=== PATIENT | male | born 1925 | race Caucasian/White ===

== ENCOUNTER 2017-01-18 13:20 | Emergency (ER) | payer OTHER, MEDICARE ==
[2017-01-18 13:40] VITALS: O2SAT 92
--- NOTE | 2017-01-18 14:27 | EDPHY ---
H & P Time Seen by Provider: 01/18/17 13:51 HPI/ROS: CHIEF COMPLAINT: pain to the proximal thigh down to the knee, right-sided HISTORY OF PRESENT ILLNESS: ED 11-year-old male who still lives alone. He does recall, granted much later in the course of his visit here, that he had a bit of a minor fall some 3 days ago. He is in the laundry room and felt of self cutting back. Onset is back to the lumbar area itself directly and then as he lost his balance lower himself gradually to the floor. Fortunately the strength to get up off the floor. Whereas he has had some pain in the right thigh for the last week it was quite worse beginning the next day, 2 days ago. It is is it began in the right knee and ascended up to the right mid thigh. At times it just comes out of the blue I will speak cramp up as if it is a muscle by problem and cough and pain. It is also steady there. Interestingly, he is able to ambulate with his walker with his daughter in order to come here. Vis-a-vis he reports no pain with weight-bearing itself. He denies any numbness or tingling paresthesias. There is no pain going down the posterior aspect of the leg to suggest radicular distribution. He does have a remote history of a lumbar fusion but is not given a problem. Denies any other recent spinal instrumentation. He did try oxycodone 10 mg the other day, it did not help, nor did it make him feel ill. He was able to ambulate well without near syncopal event. Thus he has not taken anymore as it did not help. Daughter reports that he does have more pain medicines available to him at home as well. He has not run out Work: none REVIEW OF SYSTEMS: Constitutional - no fevers or chills Musculoskeletal - no joint or muscle pain. Integument - no rashes [or wounds Neurological - no numbness, tingling, or paresthesias. Smoking Status: Never smoked Physical Exam: General Appearance: Alert, no distress. Afebrile. During the course of the interview he would all of a sudden seize up as if the pain was much worse and slightly flexes thigh and bend his knee. However he notes the pain was steady and consistent and not related to movement Extremities: He is able to internally and externally rotate at the right hip without any aggravation of pain. At the same token however when he attempts to flex the right hip as well as bend the right knee quite painful Neurological: NV intact. Sensation is intact. Muscular testing does aggravate and precipitate some of the pain Skin: Skin is intact. Warm and dry, no rashes. no lymphangitis. . Constitutional: Initial Vital Signs Temperature (C) 37 C 01/18/17 13:30 Heart Rate 103 H 01/18/17 13:30 Respiratory Rate 18 01/18/17 13:30 Blood Pressure 185/92 H 01/18/17 13:30 O2 Sat (%) 92 01/18/17 13:30 O2 Delivery Mode Room Air Allergies/Adverse Reactions: aspirin [Aspirin] Allergy (Verified 05/06/09 19:43) Home Medications: Medication Instructions Recorded Clopidogrel Bisulfate [Plavix (*)] 75 mg PO DAILY #30 tab 12/25/14 traZODone [traZODONE 100MG (*)] 50 mg PO HS #15 tab 12/25/14 Lexapro 01/18/17 Lisinopril 01/18/17 Medical Decision Making - Diagnostics Imaging Results: Imaging Impressions Femur X-Ray 01/18/17 14:27 Impression: 1. No acute osseous at about is seen about the right femur and right knee. 2. Tiny marginal osteophytes around the femoral head. 3. Small osteophytes at the patellofemoral joint. 4. Atherosclerotic vascular calcifications are noted in the soft tissues. Knee X-Ray 01/18/17 14:27 Impression: 1. No acute osseous at about is seen about the right femur and right knee. 2. Tiny marginal osteophytes around the femoral head. 3. Small osteophytes at the patellofemoral joint. 4. Atherosclerotic vascular calcifications are noted in the soft tissues. Films reviewed by me on the [facility] system ED Course/Re-evaluation: Getting history from this elderly gentleman was circumspect as would be expected. His hard of hearing did not help although it seems to be only mild. He specifically denies any history of abdominal aortic aneurysm. I would concern for insufficiency fracture and as he is weight-bearing do not feel is necessary to pursue this at this time. However if he is not better in a week or if he is having in for increasing symptomatology particular with weight- bearing thus a CT scan of the thigh area would be helpful. Of note, he has very good internal external rotation without any discomfort whatsoever thereby hip fracture is rather unlikely The differential diagnosis includes but is not limited to: Fracture, Sprain, Strain, Dislocation, Nerve injury, Contusion Departure - Departure Disposition: Home, Routine, Self-Care Clinical Impression: Strain of knee and leg, right Qualifiers: Encounter type: initial encounter Qualified Code(s): S86.911A - Strain of unspecified muscle(s) and tendon(s) at lower leg level, right leg, initial encounter Condition: Good Instructions: Knee Pain (ED), Leg Pain (ED) Additional Instructions: Ice applications should help. Recheck in 5-6 days if not a lot better. Use your Oxycodone, no more than a full pill at a time. Return if there is pain with putting weight on it. Referrals: Dong Brooks MD [Primary Care Provider] - As per Instructions
[2017-01-18 15:54] VITALS: BP 177/91; PULSE 89; RESP 20; TEMP 97.9
== END 2017-01-18 15:59 | disposition home or self-care (01) ==
LOC: CED 13:20
DX: S86.911A Strain of unspecified muscle(s) and tendon(s) at lower leg level, right leg, initial encounter (principal); W19.XXXA Unspecified fall, initial encounter
CPT/HCPCS: 73551-PO; 73562-PO

== ENCOUNTER 2017-02-12 10:35 | Emergency (ER) | payer OTHER, MEDICARE ==
[2017-02-12 10:48] VITALS: RESP 16; TEMP 97.7
--- NOTE | 2017-02-12 11:50 | EDPHY ---
H & P Time Seen by Provider: 02/12/17 11:17 HPI/ROS: HPI: is a 89 yr, male who presents with Chief Complaint: tail bone pain Location: coccyx Quality: sharp pain Duration: 2 weeks Signs and Symptoms: no radiation, no hemorrhoids, no constipation, no incontinence, no weakness, no numbness, no blood in stool, no rash Timing: intermittent, worse since last night Severity: 6-7/10 at worst, not affected by walking/sitting Context: history of cervical and lumbar DDD with what seems laminectomy L4-L5 locally 2-3 years ago. patient reports 2 months ago accidental fall while using the bathroom backwards, hitting tail bone on edge of tub. no LOC at that time, pain went away within a few hours. 2 weeks ago, patient was pulling bed sheet and slipped falling backward into CO2 monitor directly on tail bone. pain intermittent every since. managed by PCP for chronic neck and back pain with Gabapentin, Oxycodone, topical anesthestic cream (unsure of name), Trazodone QHS. walks with walker at baseline. Lidoderm patches did not help in past. Modifying Factors: no relief from above medications Comment: daughter at bedside contributes to history ROS: Eyes: No blurred vision Respiratory: No shortness of breath, no cough Cardiovascular: No chest pain Gastrointestinal: No nausea, no vomiting no diarrhea Genitourinary: No dysuria Extremities: No myalgias Neurologic: No weakness, no numbness Skin: No rashes Hematologic: No bruising, no bleeding MEDICAL/SURGICAL HISTORY: Past Medical/Surgical History: arthritis, chronic pain, CAD s/p 1 cardiac stent, HTN, pyelonephritis Social History: lives alone. strong family support. Smoking Status: Never smoked Physical Exam: CONSTITUTIONAL: pleasant adult white elderly male, well appearing, talkative, awake and alert, no obvious distress HEENT: Atraumatic and normocephalic, PERRL, EOMI. Tympanic membranes clear. Oropharynx clear, no exudate and moist pink mucosa. Airway patent. No lymphadenopathy. No meningismus. Cardiovascular: Normal S1/S2, regular rate, regular rhythm, without murmur rub or gallop. PULMONARY/CHEST: Symmetrical and nontender. Clear to auscultation bilaterally Good air movement. No accessory muscle usage. ABDOMEN: Soft, nondistended, nontender, no rebound, no guarding, no peritoneal signs, no masses or organomegaly. No CVAT. EXTREMITIES: 2/2 pulses, no deformities, no clubbing, no cyanosis or edema. NEUROLOGICAL: no focal neuro deficits. GCS 15. BACK: well healed remote midline lumbar incision noted; no erythema; no drianage ; tenderness to palpation over coccyx; no crepitus/deformity, no paraspinous muscle spasm, DTR 2/2, no pain with SLR, able to hold both legs off of bed against gravity, bilateral hip relatively good IR/ER/flexion and without pain. SKIN: Warm and dry, leathery, no erythema. no rash. Good capillary refill. Constitutional: Initial Vital Signs Temperature (C) 36.5 C 02/12/17 10:45 Heart Rate 90 02/12/17 10:45 Respiratory Rate 16 02/12/17 10:45 Blood Pressure 189/92 H 02/12/17 10:45 O2 Sat (%) 98 02/12/17 10:45 Allergies/Adverse Reactions: aspirin [Aspirin] Allergy (Verified 05/06/09 19:43) Home Medications: Medication Instructions Recorded Clopidogrel Bisulfate [Plavix (*)] 75 mg PO DAILY #30 tab 12/25/14 traZODone [traZODONE 100MG (*)] 50 mg PO HS #15 tab 12/25/14 Lexapro 01/18/17 Lisinopril 01/18/17 Medical Decision Making - Diagnostics Imaging Results: Imaging Impressions Sacrum and Coccyx X-Ray 02/12/17 11:42 Impression: 1. No visible etiology for the patient's pain. 2. Additional findings as above. Lumbar Spine X-Ray 02/12/17 11:43 Impression: Stable multilevel degenerative change in the lumbar spine with spondylolistheses, with no acute osseous findings. ED Course/Re-evaluation: lumbar xray, sacral/coccyx xray ordered fall mechanical in nature, no signs of CVA/syncope reviewed LS xray 05/02/15 showing post surgical changes and extensive multilevel DDD reviewed MRI LS 12/03/14 which was prior to laminectomy surgery due to central canal narrowing and disc herniation xrays reviewed by myself shows multilevel DDD, hardware in place, old coccyx fracture no signs of neurovascular compromise/acute fracture discussed already being managed by PCP and would benefit from pain management referral and Lumbar MIKEY patient/daughter declined more pain medication as "tolerable at this point." Differential Diagnosis: Back pain including but not limited to muscular pain, herniated disc, spine fracture, intra-abdominal causes and urinary tract infection. Departure - Departure Disposition: Home, Routine, Self-Care Clinical Impression: Acute exacerbation of chronic low back pain, Lumbar degenerative disc disease Condition: Good Additional Instructions: Benefit from Pain Management Referral Possible candidate for MIKEY injections Referrals: Dong Brooks MD [Primary Care Provider] - As per Instructions
[2017-02-12 13:37] VITALS: BP 158/88; PULSE 85; O2SAT 97
== END 2017-02-12 13:15 | disposition home or self-care (01) ==
DX: M51.36 Other intervertebral disc degeneration, lumbar region (principal); G89.29 Other chronic pain; I10 Essential (primary) hypertension; I25.10 Atherosclerotic heart disease of native coronary artery without angina pectoris; Z95.5 Presence of coronary angioplasty implant and graft